=== PATIENT | female | born 1990 | race Caucasian/White ===

== ENCOUNTER → 2016-09-13 | Outpatient (CLI) | payer BC ==
[~2016-09-13] MED LIST: BUSP5TAB59 PO; CHOL1000 PO; IBUP-103 PO; LEVOIUD INT UTER; SERT-234 PO
== END | disposition home or self-care (01) ==
LOC: C.LABSPEC 09:44
PROVIDERS: ATTEND Nurse Practitioner
DX: J02.9 Acute pharyngitis, unspecified (principal)

== ENCOUNTER 2016-12-09 01:16 | Emergency (ER) | payer BC ==
[~2016-12-09] VITALS: Ht 170.2 cm; Wt 66.9 kg
[~2016-12-09 01:16] MED LIST changes: -BUSP5TAB59 PO; -CHOL1000 PO; -SERT-234 PO
[2016-12-09 01:20] VITALS: TEMP 36.6; Ht 170.2 cm; Wt 66.9 kg
[2016-12-09] MEDS ORDERED: FAMOTIDINE 20MG/102 ML D5W IV STA (01:28)
[2016-12-09] MEDS ORDERED: SODIUM CHLORIDE 0.9% 1000ML 2,000 ML IV STA (01:28)
[2016-12-09] MEDS ORDERED: ONDANSETRON INJ 2 MG/ML 2 ML VIAL IV STA (01:28)
[2016-12-09] MEDS ORDERED: LIDOCAINE HCL 2% VISC SOLN 20 ML UDC PO STA (01:28)
[2016-12-09] MEDS ORDERED: ALUMINUM/MAGNESIUM SUSP 30 ML UDC PO STA (01:28)
[2016-12-09 01:47] LABS: BASO % 0.1 %; BASO ABS # 0.01 K/uL (0-0.2); COMPLETE YES; EOS % 0.3 %; HEMATOCRIT 42.1 % (37-47); IG% 0.2 %; LYMPH % 6.1 %; LYMPH ABS # 0.57 K/uL (1.2-3.4); MEAN CELL VOLUME 88.4 fL (80-100); MEAN CORPUSCULAR HEMOGLOBIN 30.5 pg (25-34); MEAN CORPUSCULAR HGB CONC 34.4 g/dl (32-36); MEAN PLATELET VOLUME 10.4 fL (7.4-10.4); MONO % 3.6 %; NEUT % 89.7 %; PLATELET COUNT 245 K/uL (130-400); RED BLOOD COUNT 4.76 M/uL (4.2-5.4); WHITE BLOOD COUNT 9.35 K/uL (4.8-10.8)
[2016-12-09] MEDS ORDERED: BUSP5TAB59 PO (01:53)
[2016-12-09] MEDS ORDERED: SERT-234 PO (01:53)
[2016-12-09 02:07] LABS: PREG INTERNAL NEGATIVE QC NEG CLEAR BACKGROUND; PREG INTERNAL POSITIVE QC POS CONTROL LINE
[2016-12-09 02:10] LABS: BUN/CREATININE RATIO 26.1 (10-20); CALCIUM 8.3 mg/dl (8.5-10.1); CREATININE 0.83 mg/dl (0.60-1.20); POTASSIUM 3.9 mmol/L (3.5-5.1)
--- NOTE | 2016-12-09 03:46 | EMERGENCY ROOM VISIT NOTE ---
History First contact with patient: 01:23 Chief Complaint: ABDOMINAL PAIN Stated Complaint: VOMITING,DIARRHEA,ABDOMINAL PAIN,BLACKED OUT History of Present Illness The patient is a 26 year old female who presents to the Emergency Room with complaints of nausea, vomiting, diarrhea and lightheadedness for the past day. Patient had multiple episodes of vomiting and diarrhea. No recent antibiotics. No well water. She works at [employer]. She has been around sick people. No blood or black in the vomit or stool. She denies chest pain, dyspnea, fever , chills, cough, congestion, back pain. She cannot keep fluids down. Patient did not pass out. She nearly passed out. Review of Systems See HPI for pertinent positives & negatives. A total of 10 systems reviewed and were otherwise negative. Past Medical/Surgical History Medical Problems: (1) Abdominal pain (2) Elevated lipase (3) Epigastric abdominal pain (4) Epigastric abdominal pain (5) Epigastric abdominal pain (6) Irritable bowel syndrome (7) Kidney stones (8) Pancreatitis (9) Vaginal delivery Surgical Problems: (1) History of endoscopy (2) Hx of cholecystectomy Family History Cancer Diabetes mellitus Gallbladder disease Heart disease Hypertension Lung disease Social History Smoking Status: Never Smoker Alcohol Use: none Marital Status: Housing Status: lives with family Occupation Status: employed Current/Historical Medications Scheduled Buspirone Hcl (Buspirone Hcl), 5 MG PO TID Levonorgestrel (Iud) (Mirena), 1 INT UTER CONTINOUS Sertraline (Zoloft), 100 MG PO DAILY Allergies Coded Allergies: No Known Allergies (Verified , 12/09/16) Physical Exam Vital Signs Date Time Temp Pulse Resp B/P Pulse Ox O2 Delivery O2 Flow Rate FiO2 12/09/16 03:35 76 20 109/61 98 Room Air 12/09/16 01:20 36.6 89 16 104/68 96 Room Air Physical Exam VITALS: Vitals are noted on the nurse's note and reviewed by myself. Vital signs stable. GENERAL: Pleasant female, in no acute distress, nondiaphoretic, well-developed well-nourished. SKIN: The skin was without rashes, erythema, edema, or bruising. There is no tenting of the skin. Capillary reflex less than 2 seconds. HEAD: Normocephalic atraumatic. EARS: External auditory canals clear, tympanic membranes pearly franco without erythema or effusion bilaterally. EYES: Pupils equal round and reactive to light and accommodation. Conjunctivae without injection, sclerae without icterus. Extraocular movements intact. NOSE: Patent, turbinates without inflammation or discharge. MOUTH: Mucous membranes mildly dry. Pharynx without erythema or exudate. Uvula midline. Airway patent. Tongue does not deviate. NECK: Supple without nuchal rigidity. No lymphadenopathy. No thyromegaly. Cervical spine is nontender. No JVD. HEART: Regular rate and rhythm without murmurs gallops or rubs. LUNGS: Clear to auscultation bilaterally without wheezes, rales or rhonchi. No dullness to percussion. No retractions or accessory muscle use. ABDOMEN: Positive bowel sounds x 4. Normal tympanic percussion. Soft, nontender, without masses or organomegaly. Nicole sign negative. No guarding or rebound tenderness. MUSCULOSKELETAL: No muscle atrophy, erythema, or edema noted. NEURO: Patient was alert and oriented to person place and time. Normal sensation to light and sharp touch. No focal neurological deficits. Medical Decision & Procedures Laboratory Results 12/09/16 01:30 Red Blood Count 4.76, Mean Corpuscular Volume 88.4, Mean Corpuscular Hemoglobin 30.5, Mean Corpuscular Hemoglobin Concent 34.4, Mean Platelet Volume 10.4, Neutrophils (%) (Auto) 89.7, Lymphocytes (%) (Auto) 6.1, Monocytes (%) (Auto) 3.6, Eosinophils (%) (Auto) 0.3, Basophils (%) (Auto) 0.1, Neutrophils # (Auto) 8.38, Lymphocytes # (Auto) 0.57, Monocytes # (Auto) 0.34, Eosinophils # (Auto) 0.03, Basophils # (Auto) 0.01 12/09/16 01:30 Test 12/09/16 01:30 White Blood Count 9.35 K/uL (4.8-10.8) Red Blood Count 4.76 M/uL (4.2-5.4) Hemoglobin 14.5 g/dL (12.0-16.0) Hematocrit 42.1 % (37-47) Mean Corpuscular Volume 88.4 fL (80-100) Mean Corpuscular Hemoglobin 30.5 pg (25-34) Mean Corpuscular Hemoglobin Concent 34.4 g/dl (32-36) Platelet Count 245 K/uL (130-400) Mean Platelet Volume 10.4 fL (7.4-10.4) Neutrophils (%) (Auto) 89.7 % Lymphocytes (%) (Auto) 6.1 % Monocytes (%) (Auto) 3.6 % Eosinophils (%) (Auto) 0.3 % Basophils (%) (Auto) 0.1 % Neutrophils # (Auto) 8.38 K/uL (1.4-6.5) Lymphocytes # (Auto) 0.57 K/uL (1.2-3.4) Monocytes # (Auto) 0.34 K/uL (0.11-0.59) Eosinophils # (Auto) 0.03 K/uL (0-0.5) Basophils # (Auto) 0.01 K/uL (0-0.2) RDW Standard Deviation 40.3 fL (36.4-46.3) RDW Coefficient of Variation 12.5 % (11.5-14.5) Immature Granulocyte % (Auto) 0.2 % Immature Granulocyte # (Auto) 0.02 K/uL (0.00-0.02) Anion Gap 9.0 mmol/L (3-11) Est Creatinine Clear Calc Drug Dose 99.0 ml/min Estimated GFR () 112.0 Estimated GFR (Non- 96.6 BUN/Creatinine Ratio 26.1 (10-20) Calcium Level 8.3 mg/dl (8.5-10.1) Human Chorionic Gonadotropin, Qual NEG (NEG) Medications Administered Medications (Trade) Dose Ordered Sig/Chano Route Start Time Stop Time Status Last Admin Dose Admin Ondansetron HCl 4 mg 4 mg NOW STAT IV 12/09/16 01:28 12/09/16 01:29 DC 12/09/16 01:38 4 MG Sodium Chloride (Nss 1000ml) 2,000 ml @ 999 mls/hr Q2H1M STAT IV 12/09/16 01:28 12/09/16 03:28 DC 12/09/16 01:38 999 MLS/HR Famotidine (Pepcid 20mg/100 ml) 20 mg ONE STAT IV 12/09/16 01:28 12/09/16 01:30 DC 12/09/16 01:38 20 MG Lidocaine HCl (Viscous Lidocaine 2% Soln) 10 ml NOW STAT PO 12/09/16 01:28 12/09/16 01:30 DC 12/09/16 02:08 10 ML Al Hydroxide/Mg Hydroxide (Maalox Susp) 30 ml NOW STAT PO 12/09/16 01:28 12/09/16 01:30 DC 12/09/16 02:08 30 ML ED Course Prior records/ancillary studies reviewed. Triage Nursing notes reviewed. The patient's history was concerning for nausea, vomiting, diarrhea, and abdominal pain. Differential diagnosis: Etiologies such as gastroenteritis, food borne illness, infections, appendicitis , diverticulitis, inflammatory bowel disease, obstruction, GI bleed, biliary pathology, as well as others were entertained. Physical examination findings: As above. Abdominal examination revealed no tenderness. Vital signs reviewed and revealed stable. ER treatment provided: IV hydration 2 L NSS. Zofran, Pepcid, GI cocktail On reassessment the patient felt better. Patient was tolerating p.o. intake. Diagnostics interpretation by me: The labs revealed no worrisome leukocytosis or electrolyte abnormality negative hCG This appears to be consistent with vomiting and diarrhea most likely viral in etiology. Patient did not have an acute abdomen on exam. She is tolerating fluids. She felt better. She requested to leave. She is advised to do clear liquid diet today and then progress as tolerated to bland diet tomorrow. She is advised follow-up family care in a few days or here in the ER sooner for abdominal pain, fevers, vomiting, worsening signs or symptoms or as needed. By the evaluation outlined above emergent etiologies such as appendicitis, diverticulitis, obstruction, cardiac sources, mesenteric ischemia, aortic pathology, inflammatory bowel disease, renal colic, PUD, biliary pathology, UTI , as well as others were deemed relatively unlikely. The pt informed about the findings as listed above. All questions were answered and pleased with the treatment. Return instructions were outlined and the patient was discharged in stable condition. Outpatient prescription management: zofran Referral: The patient was referred to their primary care physician for follow-up in 2 to 3 days for a recheck of the current condition. Medical Decision As above Impression Primary Impression: Nausea vomiting and diarrhea Additional Impression: Dehydration Departure Information Dispostion Home / Self-Care Condition GOOD Referrals No Doctor, Assigned (PCP) Patient Instructions [facility] Additional Instructions Zofran(odansetron) tablets 4mg: Take one and allow it to dissolve in your mouth every four to six hours as needed for nausea or vomiting. Acetaminophen(Tylenol) may be used for fever or pain. Use 1000mg every six hours as needed. Avoid using more than 3000mg in a 24 hour period. Rest and drink plenty of fluids as tolerated. Slow sips of water or sports drinks are recommended instead of large amounts all at once. Continue current medications. Once your stomach is settled start with a clear liquid diet (jello, soup broth, etc.) and then advance as tolerated. You should avoid full, heavy meals for about 24 hrs from the time your symptoms resolved. Return to the ER for persistent vomiting, fevers, abdominal pain, chest pains, difficulty breathing, black or bloody stools, worsening of your condition, or as needed. Follow up with your primary physician in 2-3 days for a recheck of your current condition. Problem Qualifiers
[2016-12-09] MEDS ORDERED: ONDANSETRON HOME PACK 4MG OD TAB PO ONE (04:00)
[2016-12-09 04:06] VITALS: BP 112/61; PULSE 65; O2SAT 95
== END 2016-12-09 04:09 | disposition home or self-care (01) ==
LOC: C.EDB 01:18 → C.EDA 04:09
DX: R11.2 Nausea with vomiting, unspecified (principal); R19.7 Diarrhea, unspecified; E86.0 Dehydration; R10.9 Unspecified abdominal pain; R42 Dizziness and giddiness; Z79.899 Other long term (current) drug therapy; Z87.19 Personal history of other diseases of the digestive system; Z87.442 Personal history of urinary calculi; Z97.5 Presence of (intrauterine) contraceptive device; Z82.49 Family history of ischemic heart disease and other diseases of the circulatory system; Z83.3 Family history of diabetes mellitus; Z83.6 Family history of other diseases of the respiratory system; Z83.79 Family history of other diseases of the digestive system

== ENCOUNTER 2017-03-08 16:36 | Emergency (ER) | payer BC ==
[~2017-03-08] VITALS: Ht 170.2 cm; Wt 64.0 kg
[~2017-03-08 16:36] MED LIST changes: +BUSP5TAB59 PO; -IBUP-103 PO; +SERT-234 PO
[2017-03-08 16:39] VITALS: TEMP 36.7; Ht 170.2 cm; Wt 64.0 kg
[2017-03-08] MEDS ORDERED: HYDROmorphone INJ 0.5 MG/0.5 ML SYR IV STA ×2 (16:51→18:32)
[2017-03-08] MEDS ORDERED: ONDANSETRON INJ 2 MG/ML 2 ML VIAL IV STA (16:51)
[2017-03-08] MEDS ORDERED: SODIUM CHLORIDE 0.9% 1000ML 1,000 ML IV STA (16:51)
[2017-03-08] MEDS ORDERED: CHOL1000 PO (16:53)
[2017-03-08 17:20] VITALS: O2SAT 99
[2017-03-08 17:28] LABS: ISTAT HEMOGLOBIN 13.9 g/dl (12.0-16.0); ISTAT IONIZED CALCIUM 1.16 mmol/l (1.12-1.32)
[2017-03-08 17:30] LABS: URINE APPEARANCE CLEAR (CLEAR); URINE BILIRUBIN NEG (NEG); URINE COLOR YELLOW; URINE NITRITE NEG (NEG); URINE PH 5.5 (4.5-7.5); URINE SPECIFIC GRAVITY 1.028 (1.000-1.030); UROBILINOGEN NEG (NEG)
[2017-03-08] MEDS ORDERED: OPTIRAY 320 IV PRN (17:30)
[2017-03-08 17:32] LABS: MANUAL MICROSCOPIC REQUIRED? NO; REVIEW REQ? NO
--- NOTE | 2017-03-08 18:08 | DIAGNOSTIC IMAGING REPORT ---
CT OF THE CHEST WITH IV CONTRAST CLINICAL HISTORY: Trauma. COMPARISON STUDY: Chest radiograph March 02, 2016. TECHNIQUE: Following IV administration of 116 mL of Optiray-320, helical axial images of the chest were obtained. Sagittal and coronal reconstructions were viewed as well as maximal intensity projections on an independent 3-D workstation. A dose lowering technique was utilized adhering to the principles of ALARA. CT DOSE: 550.85 mGy.cm FINDINGS: There is no evidence of traumatic injury to the thoracic aorta. The size of the heart is normal. There is no pericardial effusion. There are multiple calcified left hilar lymph nodes. This suggests a prior granulomatous process. No pneumothorax or pleural effusion is present. There is no acute rib or thoracic spine fracture. There is no pulmonary contusion. Minimal tree-in-bud opacity within the left lower lobe shown best on axial image 173 of 311 suggest a mild bronchiolitis. A partially calcified left lower lobe nodule shown image 207 of 311 is unchanged. This is benign. IMPRESSION: 1. No acute traumatic findings within the chest. 2. Minimal tree-in-bud opacity within the left lower lobe which suggests a mild bronchiolitis. 3. Evidence for a prior granulomatous process, as described above. Electronically signed by: Ascencion Wiggins M.D. 03/08/2017 6:06 PM Dictated Date/Time: 03/08/2017 5:53 PM
--- NOTE | 2017-03-08 18:11 | DIAGNOSTIC IMAGING REPORT ---
LEFT KNEE 3 VIEWS CLINICAL HISTORY: Left knee pain following injury. COMPARISON: Left knee radiographs December 02, 2008. FINDINGS: Alignment of the left knee is anatomic. No acute fracture or joint effusion is identified. A few tiny ossific/calcific densities which project posterior to the lateral aspect of the patella on sunrise projection are likely chronic. IMPRESSION: 1. No acute fracture or joint effusion of the left knee. 2. Several small calcific/ossific densities project posterior to the lateral aspect of the patella only on sunrise projection are likely chronic. Electronically signed by: Ascencion Wiggins M.D. 03/08/2017 6:09 PM Dictated Date/Time: 03/08/2017 6:08 PM
--- NOTE | 2017-03-08 18:18 | DIAGNOSTIC IMAGING REPORT ---
CT OF THE ABDOMEN AND PELVIS WITH CONTRAST CLINICAL HISTORY: Trauma. COMPARISON STUDY: CT of the abdomen April 06, 2015 and MRI of the abdomen May 19, 2015. TECHNIQUE: Following IV administration of 116 mL of Optiray-320, axial images of the abdomen and pelvis were obtained from the lung bases to the proximal femurs. Images were reviewed in the axial, sagittal, and coronal planes. IV contrast was administered without complication. A dose lowering technique was utilized adhering to the principles of ALARA. FINDINGS: There is no evidence of traumatic injury to the liver, spleen, adrenal glands, kidneys or pancreas. There is no biliary ductal dilatation status post cholecystectomy. The caliber and wall thickness of small and large bowel are normal. An intrauterine device is appropriate position. There is no free fluid. No acute pelvic or lumbar spine fracture is identified. The appendix is normal. IMPRESSION: No acute traumatic findings within the abdomen or pelvis. Electronically signed by: Ascencion Wiggins M.D. 03/08/2017 6:17 PM Dictated Date/Time: 03/08/2017 6:10 PM
--- NOTE | 2017-03-08 19:16 | EMERGENCY ROOM VISIT NOTE ---
History First contact with patient: 16:42 Chief Complaint: FALL Stated Complaint: KNEE PAIN, PAIN BELOW RIBS History of Present Illness The patient is a 26 year old female who presents to the Emergency Room with complaints of injuries after being blocked off of a coarse, and the horse landing on top of her this morning. The patient reports that she was training a mare when the horse bucked up and fell backwards onto the patient. She complains primarily of left knee pain, but also has upper abdominal/lower chest and rib pain. The patient denies any shortness of breath or chest pain at the time of the injury. She denies any neck pain or back pain. She does report mild left facial pain. She did not notice any taste of blood, epistaxis or jaw pain. She denies any lower abdominal pain, pelvic pain or right lower extremity pain. She denies paresthesias or numbness of the upper or lower extremities. She currently rates her discomfort a 4 out of 10. Tetanus immunization is up-to-date. The patient denies , and reports that she has a Mirena IUD in place. Review of Systems HEENT: Denies dizziness, visual problems, hearing loss, tinnitus. Denies difficulty swallowing or oral lesions. PULMONARY: Denies cough, shortness of breath, sputum production or hemoptysis. CARDIOVASCULAR: Denies chest pain, palpitations, dyspnea on exertion, orthopnea or peripheral edema. GASTROINTESTINAL: Denies diarrhea, constipation, nausea or vomiting, otherwise complains of an otherwise upper abdominal pain.. GENITOURINARY: Denies dysuria, frequency, urgency or nocturia. NEUROLOGIC: Denies history of epilepsy, CVA, TIA or chronic headaches. MUSCULOSKELETAL: Denies history of joint tenderness/swelling. SKIN: Denies rashes or lesions. PSYCHIATRIC: Denies history of depression or mental illness. ENDOCRINE: Denies history of diabetes or thyroid disorders. Past Medical/Surgical History Medical Problems: (1) Abdominal pain (2) Elevated lipase (3) Epigastric abdominal pain (4) Epigastric abdominal pain (5) Epigastric abdominal pain (6) Irritable bowel syndrome (7) Kidney stones (8) Pancreatitis (9) Vaginal delivery Surgical Problems: (1) History of endoscopy (2) Hx of cholecystectomy Family History Cancer Diabetes mellitus Gallbladder disease Heart disease Hypertension Lung disease Social History Smoking Status: Never Smoker Alcohol Use: none Marital Status: Housing Status: lives with family Occupation Status: employed Current/Historical Medications Scheduled Buspirone Hcl (Buspirone Hcl), 5 MG PO TID Cholecalciferol (Vitamin D3), 1,000 UNITS PO DAILY Levonorgestrel (Iud) (Mirena), 1 INT UTER CONTINOUS Sertraline (Zoloft), 150 MG PO DAILY Physical Exam Vital Signs Date Time Temp Pulse Resp B/P (MAP) Pulse Ox O2 Delivery O2 Flow Rate FiO2 03/08/17 18:54 60 18 116/64 97 03/08/17 17:22 70 03/08/17 17:20 99 Room Air 03/08/17 16:39 36.7 81 16 118/69 97 Physical Exam CONSTITUTIONAL: Healthy and well nourished. Alert and oriented X 3 with positive affect. Patient does not appear in any acute distress. GCS 15. HEENT: Normocephalic, atraumatic. Pupils equal, round and reactive. No facial edema, abrasions or ecchymosis. She has no focal tenderness of the facial bones. No epistaxis, hemotympanum, raccoon's eyes or Duncan sign. NECK: Full active range of motion without discomfort. RESPIRATORY: Clear to auscultation bilaterally with no wheezing, crackles, rhonchi or stridor. Deep breathing does not cause any discomfort. CARDIOVASCULAR: Regular rate and rhythm with no murmurs, rubs or gallops. GASTROINTESTINAL: Bowel sounds present in all quadrants. Patient has mild upper abdominal tenderness to palpation under bilateral lower rib margins. No rigidity, guarding or rebound. No suprapubic tenderness to palpation. MUSCULOSKELETAL: Examination does not show any obvious tenderness to palpation of the lower rib margin. Examination of the left knee shows mild edema over the medial aspect of the knee. No obvious joint effusion noted. She has peripatellar and patellar tendon tenderness to palpation. She is able to straight leg raise. No popliteal masses. Negative logroll of the hip. No tenderness to palpation about the ankle. No tenderness to palpation through the central thoracolumbar spine or posterior ribs. Otherwise the patient has no other acute musculoskeletal findings on exam. INTEGUMENTARY: No rash or other significant dermatologic conditions noted. NEUROLOGIC: Cranial nerves II-XII grossly intact. No focal neurologic deficits noted. Upper and lower extremity's are sensory intact. Medical Decision & Procedures ER Provider Diagnostic Interpretation: CT with IV contrast of the chest, abdomen and pelvis does not show any obvious acute intrathoracic or intra-abdominal/pelvic findings. Radiologist reports are as follows: CT OF THE ABDOMEN AND PELVIS WITH CONTRAST CLINICAL HISTORY: Trauma. COMPARISON STUDY: CT of the abdomen April 06, 2015 and MRI of the abdomen May 19, 2015. TECHNIQUE: Following IV administration of 116 mL of Optiray-320, axial images of the abdomen and pelvis were obtained from the lung bases to the proximal femurs. Images were reviewed in the axial, sagittal, and coronal planes. IV contrast was administered without complication. A dose lowering technique was utilized adhering to the principles of ALARA. FINDINGS: There is no evidence of traumatic injury to the liver, spleen, adrenal glands, kidneys or pancreas. There is no biliary ductal dilatation status post cholecystectomy. The caliber and wall thickness of small and large bowel are normal. An intrauterine device is appropriate position. There is no free fluid. No acute pelvic or lumbar spine fracture is identified. The appendix is normal. IMPRESSION: No acute traumatic findings within the abdomen or pelvis. CT OF THE CHEST WITH IV CONTRAST CLINICAL HISTORY: Trauma. COMPARISON STUDY: Chest radiograph March 02, 2016. TECHNIQUE: Following IV administration of 116 mL of Optiray-320, helical axial images of the chest were obtained. Sagittal and coronal reconstructions were viewed as well as maximal intensity projections on an independent 3-D workstation. A dose lowering technique was utilized adhering to the principles of ALARA. CT DOSE: 550.85 mGy.cm FINDINGS: There is no evidence of traumatic injury to the thoracic aorta. The size of the heart is normal. There is no pericardial effusion. There are multiple calcified left hilar lymph nodes. This suggests a prior granulomatous process. No pneumothorax or pleural effusion is present. There is no acute rib or thoracic spine fracture. There is no pulmonary contusion. Minimal tree-in-bud opacity within the left lower lobe shown best on axial image 173 of 311 suggest a mild bronchiolitis. A partially calcified left lower lobe nodule shown image 207 of 311 is unchanged. This is benign. IMPRESSION: 1. No acute traumatic findings within the chest. 2. Minimal tree-in-bud opacity within the left lower lobe which suggests a mild bronchiolitis. 3. Evidence for a prior granulomatous process, as described above. LEFT KNEE 3 VIEWS CLINICAL HISTORY: Left knee pain following injury. COMPARISON: Left knee radiographs December 02, 2008. FINDINGS: Alignment of the left knee is anatomic. No acute fracture or joint effusion is identified. A few tiny ossific/calcific densities which project posterior to the lateral aspect of the patella on sunrise projection are likely chronic. IMPRESSION: 1. No acute fracture or joint effusion of the left knee. 2. Several small calcific/ossific densities project posterior to the lateral aspect of the patella only on sunrise projection are likely chronic. Laboratory Results Test 03/08/17 17:15 03/08/17 17:16 Urine Color YELLOW Urine Appearance CLEAR (CLEAR) Urine pH 5.5 (4.5-7.5) Urine Specific [place] 1.028 (1.000-1.030) Urine Protein NEG (NEG) Urine Glucose (UA) NEG (NEG) Urine Ketones NEG (NEG) Urine Occult Blood NEG (NEG) Urine Nitrite NEG (NEG) Urine Bilirubin NEG (NEG) Urine Urobilinogen NEG (NEG) Urine Leukocyte Esterase NEG (NEG) Bedside Hemoglobin 13.9 g/dl (12.0-16.0) Bedside Hematocrit 41 % (37-47) Bedside Sodium 142 mEq/L (135-144) Bedside Potassium 3.6 mEq/L (3.3-5.0) Bedside Chloride 102 mEq/L (101-112) Bedside Total CO2 26 mEq/l (24-31) Anion Gap 19.0 mmol/L (16-25) Bedside Blood Urea Nitrogen 17 mg/dl (7-18) Bedside Creatinine 1.0 mg/dl (0.6-1.3) Bedside Glucose (other) 73 mg/dl (70-99) Bedside Ionized Calcium (Laura) 1.16 mmol/l (1.12-1.32) I-STAT labs were reviewed, and were normal. Medications Administered Medications (Trade) Dose Ordered Sig/Chano Route Start Time Stop Time Status Last Admin Dose Admin Sodium Chloride 1,000 ml @ 999 mls/hr Q1H1M STAT IV 03/08/17 16:51 03/08/17 17:51 DC 03/08/17 17:03 999 MLS/HR Ondansetron HCl (Zofran Inj) 4 mg NOW STAT IV 03/08/17 16:51 03/08/17 16:55 DC 03/08/17 17:04 4 MG Hydromorphone HCl (Dilaudid Inj) 0.5 mg NOW STAT IV 03/08/17 16:51 03/08/17 16:55 DC 03/08/17 17:04 0.5 MG Hydromorphone HCl (Dilaudid Inj) 0.5 mg NOW STAT IV 03/08/17 18:32 03/08/17 18:33 DC 03/08/17 18:55 0.5 MG ED Course Patient history and physical exam were performed. Nurse's notes were reviewed. Vital signs were reviewed and normal. Because of right upper abdominal tenderness to palpation, and concern for solid organ injury, I did suggest performing a CT scan of the chest, abdomen and pelvis. The patient was in agreement. IV access was established, and i-STAT labs were drawn and were normal. The patient reports that she cannot tolerate morphine, but is requesting something for pain. She has been administered Dilaudid in the past. The patient was administered Dilaudid 0.5 mg and Zofran 4 mg IVP. She was also hydrated with a liter normal saline. CT with IV contrast of the chest, abdomen and pelvis was normal. X-rays of the left knee also does not show any acute findings. On reassessment, the patient reports that she still has notable left knee pain. I suggested another dose of IV Dilaudid, and the patient was in agreement. She was administered an additional Dilaudid 0.5 mg IVP. Knee immobilizer and crutches were dispensed. The patient was encouraged to intermittently apply ice to areas of discomfort. Ibuprofen and Tylenol in alternating fashion as needed for additional pain relief. She refused any prescription analgesics. She was instructed to follow-up with her PCP for recheck in the next 2-3 days, and [facility] for further reassessment of the knee. The patient was happy with plan of care, voiced understanding of all discharge instructions , and rated her pain a 4 out of 10 at the time of discharge. Medical Decision Workup today is not suggestive of any acute intrathoracic or intra-abdominal/ pelvic traumatic injuries. The patient remained hemodynamically stable while in the emergency department, and did not have any worsening condition. I feel that the patient is safe for outpatient management. Blood Pressure Screening Patient's blood pressure: Normal blood pressure Impression Primary Impression: Left knee injury Additional Impressions: Abdominal wall contusion Facial contusion Fall from horse Departure Information Referrals Patricia Fontenot C.R.N.P (PCP) Patient Instructions [facility] Problem Qualifiers Primary Impression: Left knee injury Encounter type: initial encounter Qualified Codes: S89.92XA - Unspecified injury of left lower leg, initial encounter Additional Impressions: Abdominal wall contusion Encounter type: initial encounter Qualified Codes: S30.1XXA - Contusion of abdominal wall, initial encounter Facial contusion Encounter type: initial encounter Qualified Codes: S00.83XA - Contusion of other part of head, initial encounter Fall from horse Encounter type: initial encounter Qualified Codes: V80.010A - Animal-rider injured by fall from or being thrown from horse in noncollision accident, initial encounter
[2017-03-08 19:47] VITALS: BP 121/76; PULSE 71; O2SAT 100
== END 2017-03-08 19:49 | disposition home or self-care (01) ==
LOC: C.EDB 16:37 → C.EDA 19:49
DX: S89.92XA Unspecified injury of left lower leg, initial encounter (principal); S30.1XXA Contusion of abdominal wall, initial encounter; S00.83XA Contusion of other part of head, initial encounter; V80.010A Animal-rider injured by fall from or being thrown from horse in noncollision accident, initial encounter; K58.9 Irritable bowel syndrome, unspecified; Z87.442 Personal history of urinary calculi; Z83.3 Family history of diabetes mellitus; Z82.49 Family history of ischemic heart disease and other diseases of the circulatory system

== ENCOUNTER → 2017-03-27 | Outpatient (CLI) | payer BC ==
[~2017-03-27] MED LIST changes: +CHOL1000 PO
== END | disposition home or self-care (01) ==
LOC: C.LABSPEC 17:37
PROVIDERS: ATTEND Obstetrics & Gynecology
DX: N76.2 Acute vulvitis (principal)

== ENCOUNTER → 2017-07-11 | Outpatient (CLI) | payer BC ==
[2017-07-11 17:43] LABS: BASO % 0.3 %; BASO ABS # 0.02 K/uL (0-0.2); COMPLETE YES; EOS % 1.9 %; HEMATOCRIT 40.9 % (37-47); IG% 0.2 %; LYMPH ABS # 1.92 K/uL (1.2-3.4); MEAN CELL VOLUME 90.5 fL (80-100); MEAN CORPUSCULAR HEMOGLOBIN 30.5 pg (25-34); MEAN CORPUSCULAR HGB CONC 33.7 g/dl (32-36); MEAN PLATELET VOLUME 10.7 fL (7.4-10.4); MONO % 9.7 %; NEUT % 56.9 %; PLATELET COUNT 240 K/uL (130-400); RED BLOOD COUNT 4.52 M/uL (4.2-5.4)
[2017-07-11 18:09] LABS: BLOOD UREA NITROGEN 16 mg/dl (7-18); BUN/CREATININE RATIO 23.4 (10-20); CALCIUM 8.3 mg/dl (8.5-10.1); CARBON DIOXIDE 27 mmol/L (21-32); CHLORIDE 105 mmol/L (98-107); CREATININE 0.67 mg/dl (0.60-1.20); GLUCOSE 87 mg/dl (70-99); POTASSIUM 4.2 mmol/L (3.5-5.1); SODIUM 137 mmol/L (136-145)
== END | disposition home or self-care (01) ==
LOC: C.LABPVFM 15:40
PROVIDERS: ATTEND Family Medicine Adult Medicine
DX: R53.83 Other fatigue (principal); R39.9 Unspecified symptoms and signs involving the genitourinary system

== ENCOUNTER → 2017-11-17 | Outpatient (CLI) | payer OTHER ==
[~2017-11-17] MED LIST changes: +LEVO1IUD2 INT UTER; -LEVOIUD INT UTER
== END | disposition home or self-care (01) ==
LOC: C.LABPVFM 14:14
PROVIDERS: ATTEND Nurse Practitioner
DX: N91.2 Amenorrhea, unspecified (principal)

== ENCOUNTER 2018-02-21 08:03 | Emergency (ER) | payer OTHER ==
[~2018-02-21] VITALS: Ht 171.5 cm; Wt 81.6 kg
[2018-02-21 08:07] VITALS: TEMP 37.1; O2SAT 98; Ht 171.5 cm; Wt 81.6 kg
[2018-02-21 08:54] LABS: HEMOGLOBIN 13.5 g/dL (12.0-16.0); MEAN CORPUSCULAR HEMOGLOBIN 30.8 pg (25-34); MEAN CORPUSCULAR HGB CONC 34.6 g/dl (32-36); MEAN PLATELET VOLUME 10.4 fL (7.4-10.4); PLATELET COUNT 222 K/uL (130-400); RED CELL DISTRIBUTION WIDTH CV 13.1 % (11.5-14.5); RED CELL DISTRIBUTION WIDTH SD 42.3 fL (36.4-46.3); WHITE BLOOD COUNT 12.42 K/uL (4.8-10.8)
[2018-02-21 09:10] LABS: BLOOD UREA NITROGEN 9 mg/dl (7-18); CALCIUM 8.3 mg/dl (8.5-10.1); CARBON DIOXIDE 23 mmol/L (21-32); CREATININE 0.52 mg/dl (0.60-1.20); GLUCOSE 86 mg/dl (70-99); POTASSIUM 3.7 mmol/L (3.5-5.1); SODIUM 137 mmol/L (136-145)
--- NOTE | 2018-02-21 10:02 | DIAGNOSTIC IMAGING REPORT ---
EXAMINATION: RENAL ULTRASOUND CLINICAL HISTORY: Dysuria, incontinence. COMPARISON STUDY: FINDINGS: The right kidney measures 11.5 cm. The left kidney measures 10.8 cm. There is no evidence of hydronephrosis. There are no renal masses. The bladder was not well-distended. Neither ureteral jet was visualized. IMPRESSION : 1. The kidneys appear normal bilaterally. There is no hydronephrosis. Electronically signed by: Mauricio Renner M.D. 02/21/2018 10:00 AM Dictated Date/Time: 02/21/2018 10:00 AM
--- NOTE | 2018-02-21 10:04 | DIAGNOSTIC IMAGING REPORT ---
ULTRASONOGRAPHY (ENDOVAGINAL SCANNING) CLINICAL HISTORY: , urinary tract infection. COMPARISON STUDY: No previous studies for comparison. FINDINGS: A single alive intrauterine gestation was visualized. The crown-rump rump length measured 4.8 cm corresponding to an estimated postmenstrual age of 11 weeks and 4 days. The placenta was anterior. The maternal ovaries were unremarkable in appearance. The heart rate is 163. IMPRESSION: Single live intrauterine gestation. The estimated postmenstrual age is 11 weeks and 4 days. Electronically signed by: Mauricio Renner M.D. 02/21/2018 10:02 AM Dictated Date/Time: 02/21/2018 10:01 AM
[2018-02-21 10:06] VITALS: PULSE 88
[2018-02-21] MEDS ORDERED: AMOX875T PO (10:21)
[2018-02-21] MEDS ORDERED: ONDA4TAB10 SL (10:21)
--- NOTE | 2018-02-21 10:23 | EMERGENCY ROOM VISIT NOTE ---
History First contact with patient: 08:10 Chief Complaint: URINARY SYMPTOMS Stated Complaint: 12 WK PREGANANT-CAN'T CONTROL BLADDER, WOKE IN [facility] Nursing Triage Summary: I am 12 weeks preg I woke up peeing myself. I am unable to control my bladder. having a lot of bladder pain. recently finished antibiotics for bladder infection History of Present Illness Patient is a 12 week 27-year-old female who presents emergency department for evaluation of bladder pain and UTI symptoms. Her symptoms started yesterday with bladder pain. She began to experience some dysuria, frequency, urgency and reports that she was incontinent of urine this morning when she woke up and has had persistent urgency and hesitancy this morning. She called her [employer] but did not hear back from them. She was treated at the beginning of the month for a urinary tract infection with an unknown antibiotic , she finished this about 2 weeks ago and was asymptomatic until yesterday. She did not take any medications, nor perform any interventions for her symptoms overnight. She reports normal vaginal discharge, denies any vaginal bleeding and does report that she has been feeling the baby move. She has not had intercourse recently. She denies feeling anything that is contraction like , but does have some low back aching. She has had some chills but did not check her temperature. She does report typical headache and nausea related to her first trimester . She does have a history of kidney stones. Review of Systems Review of systems as per HPI. All other systems reviewed were negative. 10 systems reviewed. Past Medical/Surgical History Medical Problems: (1) Abdominal pain (2) Abdominal wall contusion (3) Dehydration (4) Elevated lipase (5) Epigastric abdominal pain (6) Epigastric abdominal pain (7) Epigastric abdominal pain (8) Facial contusion (9) Fall from horse (10) Irritable bowel syndrome (11) Kidney stones (12) Left knee injury (13) Left sided chest pain (14) Nausea vomiting and diarrhea (15) Pancreatitis (16) Vaginal delivery Surgical Problems: (1) History of endoscopy (2) Hx of cholecystectomy Electronic medical records are reviewed and summarized as above/below. See Problem List. Family History Cancer Diabetes mellitus Gallbladder disease Heart disease Hypertension Lung disease Social History Smoking Status: Never Smoker Alcohol Use: none Marital Status: Housing Status: lives with family Occupation Status: employed Current/Historical Medications Scheduled Amoxicillin & Pot Clavulanate (Augmentin 875-125 mg), 1 TAB PO BID Scheduled PRN Ondasetron Odt (Zofran Odt), 4 MG SL Q6H PRN for Nausea or Vomiting Physical Exam Vital Signs Date Time Temp Pulse Resp B/P (MAP) Pulse Ox O2 Delivery O2 Flow Rate FiO2 02/21/18 10:49 151/87 02/21/18 10:06 88 18 137/84 02/21/18 08:07 37.1 91 18 137/84 98 Room Air Physical Exam CONSTITUTIONAL: Patient is a well-appearing 27-year-old female who is awake and alert and in no acute distress. EYES: Pupils equal, round, reactive to light and accommodation. EOMs intact without nystagmus. Sclera are anicteric. ENT: Tympanic membranes intact, with normal landmarks. External canals are clear. Oral and nasopharynx are clear. Mucous membranes are moist, no lesions , tongue and gums appear normal. CARDIOVASCULAR: Regular rate and rhythm, with normal S1 and S2, no murmur or gallop or rub is heard. No carotid bruits auscultated. No JVD. Peripheral pulses easily palpable. RESPIRATORY: Breath sounds equal and clear to auscultation without wheezes, rales, or rhonchi heard. Full and equal chest expansion without accessory muscle use or retractions. ABDOMEN: Bowel sounds are present. Abdomen is soft, mildly tender in the suprapubic region without guarding, rebound or rigidity. Fundus of the uterus is nonpalpable. No CVA tenderness. INTEGUMENTARY: No lesions or rash, normal skin turgor. LYMPH: No lymphadenopathy. Medical Decision & Procedures ER Provider Diagnostic Interpretation: RENAL ULTRASOUND CLINICAL HISTORY: Dysuria, incontinence. COMPARISON STUDY: FINDINGS: The right kidney measures 11.5 cm. The left kidney measures 10.8 cm. There is no evidence of hydronephrosis. There are no renal masses. The bladder was not well-distended. Neither ureteral jet was visualized. IMPRESSION : 1. The kidneys appear normal bilaterally. There is no hydronephrosis. ULTRASONOGRAPHY (ENDOVAGINAL SCANNING) CLINICAL HISTORY: , urinary tract infection. COMPARISON STUDY: No previous studies for comparison. FINDINGS: A single alive intrauterine gestation was visualized. The crown-rump rump length measured 4.8 cm corresponding to an estimated postmenstrual age of 11 weeks and 4 days. The placenta was anterior. The maternal ovaries were unremarkable in appearance. The heart rate is 163. IMPRESSION: Single live intrauterine gestation. The estimated postmenstrual age is 11 weeks and 4 days. Laboratory Results 02/21/18 08:40 02/21/18 08:40 Test 02/21/18 08:30 02/21/18 08:40 Urine Color YELLOW Urine Appearance CLOUDY (CLEAR) Urine pH 6.5 (4.5-7.5) Urine Specific [place] 1.024 (1.000-1.030) Urine Protein 2+ (NEG) Urine Glucose (UA) NEG (NEG) Urine Ketones NEG (NEG) Urine Occult Blood 2+ (NEG) Urine Nitrite NEG (NEG) Urine Bilirubin NEG (NEG) Urine Urobilinogen NEG (NEG) Urine Leukocyte Esterase MODERATE (NEG) Urine WBC (Auto) >30 /hpf (0-5) Urine RBC (Auto) >30 /hpf (0-4) Urine Hyaline Casts (Auto) 1-5 /lpf (0-5) Urine Epithelial Cells (Auto) 0-5 /lpf (0-5) Urine Bacteria (Auto) 1+ (NEG) Urine Yeast (Auto) (NONE PRSENT) Red Blood Count 4.38 M/uL (4.2-5.4) Mean Corpuscular Volume 89.0 fL (80-100) Mean Corpuscular Hemoglobin 30.8 pg (25-34) Mean Corpuscular Hemoglobin Concent 34.6 g/dl (32-36) RDW Standard Deviation 42.3 fL (36.4-46.3) RDW Coefficient of Variation 13.1 % (11.5-14.5) Mean Platelet Volume 10.4 fL (7.4-10.4) Anion Gap 7.0 mmol/L (3-11) Est Creatinine Clear Calc Drug Dose 178.8 ml/min Estimated GFR () > 150.0 Estimated GFR (Non- 130.0 BUN/Creatinine Ratio 17.1 (10-20) Calcium Level 8.3 mg/dl (8.5-10.1) ED Course Patient seen and evaluated as above. Her old records were reviewed including her urine culture from 01/30 which grew staph saprophyticus. The patient initially could not recall which antibiotic she was treated with, when her mother presented to the emergency department she believes that it was cephalexin. Patient reports that she has been off of antibiotics for about 2 weeks. She went developed urinary symptoms within the last 24 hours. She has been incontinent, which could be related to infection, but she is also concerned about the viability of her . IV lock was initiated and laboratory collected. CBC with differential, BMP and urinalysis and urine culture were ordered. Given her history of kidney stones as well as her urinary symptoms, retroperitoneal ultrasound was obtained in addition to a ultrasound to evaluate the early . Patient's laboratory studies revealed a white count of 12,400. H&H is normal. Electrolytes are well without significant abnormality. No significant renal function abnormalities. Urinalysis is concerning for infection, with 2+ occult blood, moderate leukoesterase, greater than 30 WBCs and RBCs and 1+ bacteria. Culture is pending. Retroperitoneal ultrasound was unremarkable, kidneys appearing normally bilaterally without renal masses and no hydronephrosis. ultrasound confirmed a single, live, intrauterine gestation measuring 11 weeks 4 days consistent with her dates, with confirmed cardiac activity at 163 bpm. Ovaries are unremarkable. The patient was reassessed. She was made aware of the results of all of her laboratory and diagnostic imaging studies. She does appear to have a urinary tract infection. Exam does not appear consistent with pyelonephritis, and kidney stone was entertained, but felt to be less likely. She does not appear to be experiencing any type of obstetric complications including threatened AB or contractions. She will be placed on Augmentin pending urine closely with her primary care provider and [employer] for further care and management. She was educated on the worrisome signs or symptoms for which she should return to the emergency department, including but not limited to worsening pain, fevers, vomiting, inability to urinate. Patient was discharged home with her family in good condition. Medical Decision See ED Course. Medication Reconcilliation Current Medication List: was personally reviewed by me Blood Pressure Screening Patient's blood pressure: Normal blood pressure Blood pressure disposition: Did not require urgent referral Impression Primary Impression: Urinary tract infection Additional Impression: First trimester Departure Information Prescriptions Amoxicillin & Pot Clavulanate (Augmentin 875-125 mg) 1 Tab Tab 1 TAB PO BID, #14 TAB Prov: Angeline Rincon PA 7/28/18 Ondasetron Odt (ZOFRAN ODT) 4 Mg Tab 4 MG SL Q6H Y for Nausea or Vomiting, #25 TAB Prov: Angeline Rincon PA 02/21/18 Referrals Patricia Fontenot C.R.N.P (PCP) Patient Instructions My [facility] Additional Instructions Amoxicillin Clavulanate (Augmentin) 875mg: Take one pill twice daily for 7 days for your urine infection. All antibiotics can cause diarrhea. If this occurs and you feel worse or it does not resolve in 1-2 days follow up with your doctor or return to the Emergency Department as this could be signs of serious underlying problems. Any medication can cause an allergic reaction, stop the pills immediately and return to the ER for rash, hives, breathing difficulties, or swelling. Acetaminophen(Tylenol): may be used for fever or pain. Use 1000mg every eight hours as needed. Avoid using more than 3000mg in a 24 hour period. This is available over the counter. Read all the package inserts or medication information paperwork provided. If you have any questions or concerns call your primary provider, pharmacist or the ER for assistance. Rest and drink plenty of fluids. Continue current medications. Return to the ER immediately for worsening or persistent abdominal pain, vomiting, fevers, back or flank pain, worsening of your condition, or as needed. Follow up with your primary physician within 2-3 days for a recheck of the current condition Call [employer] on Friday to notify them of your ED visit, and schedule a follow up appointment. Problem Qualifiers Primary Impression: Urinary tract infection
[2018-02-21 10:49] VITALS: BP 151/87
--- NOTE | 2018-02-23 20:09 | Pharmacy Progress Note ---
ED Pharmacist Culture FollowUp Date of Service: Feb 23, 2018. Urine cx is growing oxacillin resistant staph saprophyticus >100,000CFU/mL. Pt was sent home w/ dx of UTI and given Rx for Augmentin 875mg PO BID x 7 days. She is ~12 wks . Mechanism of oxacillin resistance is likely altered penicillin binding protein which would make Augmentin ineffective. I did attempt to gain more information from micro to see if additional abx's tested in panel but not reported. Micro stated they were unable to access/report this info. Reviewed case w/ Dr Rubio. Plan was made to d/c Augmentin, place the patient on Macrobid 100mg PO BID x 7 days and have the patient f/u OBGYN to confirm cure after ABX therapy complete. Bactrim is not recommended in 1st trimester. Macrobid may be used in 1st trimester when other agents cannot be used. I attempted to contact the patient w/ ph # provided: [phone], however there was no answer and her voicemail was full.
--- NOTE | 2018-02-24 14:33 | Pharmacy Progress Note ---
ED Pharmacist Culture FollowUp Date of Service: Feb 24, 2018. Attempted to contact patient again today, this time via text requesting the patient call [phone] when she receives the message. Awaiting response. Date of Service: Feb 23, 2018. Urine cx is growing oxacillin resistant staph saprophyticus >100,000CFU/mL. Pt was sent home w/ dx of UTI and given Rx for Augmentin 875mg PO BID x 7 days. She is ~12 wks . Mechanism of oxacillin resistance is likely altered penicillin binding protein which would make Augmentin ineffective. I did attempt to gain more information from micro to see if additional abx's tested in panel but not reported. Micro stated they were unable to access/report this info. Reviewed case w/ Dr Rubio. Plan was made to d/c Augmentin, place the patient on Macrobid 100mg PO BID x 7 days and have the patient f/u OBGYN to confirm cure after ABX therapy complete. Bactrim is not recommended in 1st trimester. Macrobid may be used in 1st trimester when other agents cannot be used. I attempted to contact the patient w/ ph # provided: [phone], however there was no answer and her voicemail was full.
== END 2018-02-21 10:50 | disposition home or self-care (01) ==
LOC: C.EDB 08:05 → C.EDA 10:50
DX: O23.41 Unspecified infection of urinary tract in pregnancy, first trimester (principal); Z3A.11 11 weeks gestation of pregnancy

== ENCOUNTER 2018-08-21 11:18 | Inpatient (IN) ==
[2018-08-21] MEDS ORDERED: OXYTOCIN 30 UNITS/500 ML BAG IV PRN ×2 (11:42→17:17)
[2018-08-21] MEDS ORDERED: LACTATED RINGER'S 1,000 ML IV PRN (11:42)
--- NOTE | 2018-08-21 11:42 | History & Physical Report ---
Date of Service August 21, 2018 Assessment & Plan (1) Normal in multigravida in third trimester: 28 year old at 37 weeks and 6 days with regular contractions every 3 minutes or so who has not made much cervical change since the . Will admit to L and D and check her cervical progress and externally monitor status IV fluids LR at 125/hr CBC Will have her walk the unit and see if contractions subside or if this is truly labor. History of Present Illness Chief Complaint: Labor Check Primary Care Provider: LAUREL Smallwood Ms. Shey Prater is a 28 year old who is presenting to Labor and Delivery at 37 weeks and 6 days for a check of labor. She had been having sporadic random cramps for the last several weeks of her , but today at 9:30 am she noticed she was having intense regular contractions. These have persisted since. She was last seen two days ago 08/[address] Lyman and was found to be 3 cm dilated, 80% effaced and -1 station. On this past friday she started to discharge some pink mucus. She denies any michael bleeding, loss of fluid, and tells me she feels baby moving normally. She has been well recently and denied any recent illness or other ailment. She has been nauseous off and on since last night. Her labs are as follows. Blood Type: AB+ Initial Hemoglobin 12.7 Platelets 283 Last Pap 2016 was negative Rubella Immune GBS - All other infectious testing Negative Thyroid function normal Diabetes Screen Negative Panorama scan negative and shows male fetus Allergies Allergy/AdvReac Type Severity Reaction Status Date / Time morphine AdvReac Severe RACING Unverified 02/21/18 08:55 HEART, CAN'T BREATHE Patient History Social History marital status: Current Living Situation: Spouse and Family Other Information That Helps Us Care for You: No Feels Safe at Home: Yes Safety Concerns: Feels Safe At This Time Smoking Status: Unknown if ever smoked Hx Alcohol Use: No Hx Substance Use: No Beliefs That Will Affect Care: None Preferred Language: Belarusian Communication Ability: Effective Inventory Control Assistant Required: No Review of Systems Constitutional: no fever, no chills, no fatigue and no weakness Respiratory: no cough, no chest congestion, no dyspnea and no wheezing Cardiovascular: + edema; no chest pain, no dyspnea, no palpitations and no syncope Gastrointestinal: no nausea and no vomiting Blood tinged mucus vaginal discharge, no large volume loss of fluids, no bleeding. Physical Exam 2 Vital Signs (Past 24 Hours): Last Vital Signs Pulse 86 08/21/18 11:21 BP 125/77 08/21/18 11:21 Constitutional: well developed, well nourished and + acute distress (SOme distress during contractions) Respiratory: normal respiratory effort, lungs clear to auscultation Cardiovascular: Rate/Rhythm: regular rate and regular rhythm Heart Sounds: normal S1 and normal S2; no click, no gallop, no murmur and no cardiac rub Extremities: + edema (bilateral pitting edema); no calf tenderness Gastrointestinal (Abdomen): Percussion/Palpation: abdomen soft; abdomen nontender With gravid uterus Genitourinary: Manual OB Exam: + cervical dilation 3 cm and 4 cm, + cervical effacement 80% and + station -2 Supervising Physician Co-Signing Physician Notes I have seen/examined patient. I have read above note performed by resident and I agree with above. Any changes/additions are below: 28yo @ 37 6/7 with regular ctx for the past few hours. No leaking fluid /vaginal bleeding. Check in office 2 days ago 3/80/-1. Today, FHT Cat 1. [place] Q 2 min. Cervix 3-4/80/-2. Given patient's prior deliveries were very quick, and her worsening ctx, will admit with labs, IVF, EFM/toco. I discussed with patient that we will monitor her progress - if she makes progress, will keep her and will be ready for delivery. If she does not make change, will reevaluate whether will keep her for further observation vs discharge home. She is agreeable to this plan. Thelma Bender DO [facility]
[2018-08-21] MEDS ORDERED: LACTATED RINGER'S 1,000 ML IV SCH (11:45)
[2018-08-21 12:06] LABS: Hematocrit (blood only) 38.5 % (37-47); Mean Corpuscular Volume 90.8 fL (80-100); Mean Platelet Volume 10.6 fL (7.4-10.4); Platelet Count 171 K/uL (130-400); RDW Standard Deviation 45.4 fL (36.4-46.3); Red Blood Count 4.24 M/uL (4.2-5.4); White Blood Count 9.56 K/uL (4.8-10.8)
[2018-08-21 12:15] LABS: Mean Corpuscular Hgb Conc 33.8 g/dL (32-36)
[2018-08-21] MEDS ORDERED: BUPIVACAINE 0.25% 30 ML VIAL ONE (13:24)
[2018-08-21] MEDS ORDERED: ePHEDrine sulfate 50 MG/ML AMP ONE (13:25)
[2018-08-21] MEDS ORDERED: fentaNYL 2MCG/ML ROPIV 1.25MG/ML 100 ML BAG EPI ONE (13:25)
[2018-08-21] MEDS ORDERED: fentaNYL citrate 100 MCG/2 ML VIAL ONE (13:25)
--- NOTE | 2018-08-21 14:12 | Anesthesiology Consultation ---
Date of Service August 21, 2018 Assessment & Plan (1) Encounter for pre-operative examination: Chart Review Chart Review: Acceptable Risk for Surgery and Patient NOT seen in Pre Admission Testing Consults Requested none History Height/Weight Height: 5 ft 7 in Weight: 83.915 kg Allergies Allergy/AdvReac Type Severity Reaction Status Date / Time morphine AdvReac Severe RACING Unverified 02/21/18 08:55 HEART, CAN'T BREATHE Medications Active Medications Generic Name Dose Route Start Last Admin Trade Name Freq PRN Reason Stop Dose Admin Lactated Ringer's 1,000 mls @ 125 mls/hr 08/21/18 11:45 08/21/18 11:34 Lr IV 08/23/18 11:44 125 mls/hr .Q8H URI Administration Social History Smoking Status: Unknown if ever smoked Hx Alcohol Use: No Hx Substance Use: No Review of Systems Respiratory: no cough and no dyspnea Cardiovascular: no chest pain Physical Exam Vital Signs Last Vital Signs Temp 36.8 C 08/21/18 11:27 Pulse 72 08/21/18 14:10 Resp 22 08/21/18 11:27 BP 124/64 08/21/18 14:10 Pulse Ox 100 08/21/18 14:05 Testing Laboratory Results 08/21/18 11:51
--- NOTE | 2018-08-21 14:31 | Obstetrical Progress Note ---
Date of Service August 21, 2018 Subjective Comfortable after epidural. FHT Cat 1. [place] Q 2 SVE /-2 AROM performed, small amount of clear fluid. Continue to monitor, anticipate . Physical Exam 2 Vital Signs (Past 24 Hours): Last Vital Signs Temp 36.8 C 08/21/18 11:27 Pulse 86 08/21/18 14:25 Resp 22 08/21/18 11:27 BP 117/72 08/21/18 14:17 Pulse Ox 100 08/21/18 14:25
[2018-08-21] MEDS ORDERED: fentaNYL 2MCG/ML ROPIV 1.25MG/ML 100 ML BAG EPI PRN (15:10)
--- NOTE | 2018-08-21 15:36 | Obstetrical Progress Note ---
Date of Service August 21, 2018 Subjective Patient called out feeling dizzy and nauseated. BP 70s/40s, ephedrine given. Pulse dropped to 40s - anesthesia called to bedside. 2nd IV started, patient placed in trendelenberg position. Epidural turned off, patient repositioned. BP and pulse improved. FHT tachycardic, likely related to ephedrine administration. SVE anterior rim/100/0 Anticipate . Physical Exam 2 Vital Signs (Past 24 Hours): Last Vital Signs Temp 36.8 C 08/21/18 11:27 Pulse 88 08/21/18 15:30 Resp 22 08/21/18 11:27 BP 114/62 08/21/18 15:18 Pulse Ox 100 08/21/18 15:30
--- NOTE | 2018-08-21 16:34 | Procedure Note ---
Vaginal Delivery Summary Date of Service August 21, 2018 Vaginal Delivery Summary Predelivery Diagnoses: 28yo @ 37 6/7w, spontaneous labor Postdelivery Diagnoses: same Procedure: Spontaneous vaginal delivery, repair of 1st degree perineal laceration Complications: none Surgeon: Dr Bender EBL: 300ml Findings: Viable male , apgars 8/9. Weight 7#11. 1st degree perineal laceration. Description of delivery: The patient progressed to complete with epidural anesthesia. She then began to push. She spontaneously vaginally delivered a viable male from the cephalic presentation. The head delivered in occiput posterior position, and the baby rotated during delivery of head. Bilateral shoulders delivered at the same time, immediately followed by body. The baby was placed on mother's abdomen, spontaneous cry was heard. Delayed cord clamping was employed, and after approximately 2 minutes and cessation of pulsation of the cord the cord was doubly clamped and cut. Cord blood was obtained. The placenta was spontaneously delivered intact with a three-vessel cord. Pitocin was given and the uterus became firm. The uterus and vagina were swept of all clots and debris. The cervix, vagina, perineum were visualized and a first-degree perineal laceration was noted. The area was infiltrated with 1% lidocaine for better pain control. This was repaired in standard fashion with 3-0 Vicryl. Excellent hemostasis was observed. Sponge, instrument, needle counts were correct x2 at the conclusion of the case. Mother and baby are recovering in stable and good condition in the room.
[2018-08-21] MEDS ORDERED: ACETAMINOPHEN 325 MG TAB PO PRN (17:17)
[2018-08-21] MEDS ORDERED: HYDROCORTISONE ACETATE 25 MG SUPP PR PRN (17:17)
[2018-08-21] MEDS ORDERED: SUPERCREAM 0.870% 15 GM JAR EXT PRN (17:17)
[2018-08-21] MEDS ORDERED: DIPHTHERIA/TETANUS/PERTUSSIS 0.5 ML SYR/VIAL IM ONE (17:17)
[2018-08-21] MEDS ORDERED: BISACODYL 10 MG SUPP PR PRN (17:17)
[2018-08-21] MEDS ORDERED: BENZOCAINE 20% AER SPR 82.5 GM CAN EXT PRN (17:17)
[2018-08-21] MEDS: IBUPROFEN 600 MG TAB PO PRN (17:41)
--- NOTE | 2018-08-21 19:11 | Anesthesia Procedure Note ---
Date of Service August 21, 2018 Anesthesia Post Epidural Note Vital Signs Vital Signs: Temp Pulse Resp BP Pulse Ox 08/21/18 18:48 108 H 133/79 08/21/18 18:32 104 H 109/64 08/21/18 18:17 95 H 125/79 08/21/18 18:02 105 H 139/79 08/21/18 17:48 110 H 118/67 08/21/18 17:32 78 18 132/66 08/21/18 17:17 88 130/69 08/21/18 17:02 71 128/76 08/21/18 16:47 80 132/78 08/21/18 16:32 77 136/78 08/21/18 16:24 82 127/69 08/21/18 16:17 83 119/67 08/21/18 16:05 88 100 08/21/18 16:02 86 129/64 08/21/18 16:00 102 H 100 08/21/18 15:55 138 H 90 08/21/18 15:50 148 H 100 08/21/18 15:45 140 H 100 08/21/18 15:40 78 99 08/21/18 15:35 78 100 08/21/18 15:34 37 L 120/79 08/21/18 15:30 88 100 08/21/18 15:27 36.9 C 20 08/21/18 15:25 77 100 08/21/18 15:20 77 100 08/21/18 15:18 80 114/62 08/21/18 15:15 84 100 08/21/18 15:10 77 99 08/21/18 15:05 77 99 08/21/18 15:03 70 143/81 H 08/21/18 15:00 64 100 08/21/18 14:55 55 L 108/58 L 100 08/21/18 14:53 65 75/46 L 08/21/18 14:50 71 77/42 L 98 08/21/18 14:49 75 91/50 L 08/21/18 14:45 87 100 08/21/18 14:40 93 H 100 08/21/18 14:35 102 H 99 08/21/18 14:32 105 H 104/74 08/21/18 14:30 97 H 94 08/21/18 14:25 86 100 08/21/18 14:20 76 98 08/21/18 14:17 100 H 117/72 08/21/18 14:15 71 99 08/21/18 14:10 87 124/64 100 08/21/18 14:08 76 128/72 08/21/18 14:06 86 128/63 08/21/18 14:05 71 100 08/21/18 14:04 83 138/60 08/21/18 14:02 76 132/79 08/21/18 14:00 84 126/78 98 08/21/18 13:58 87 132/71 08/21/18 13:55 87 100 08/21/18 13:50 90 99 08/21/18 13:45 92 H 100 08/21/18 13:40 85 129/79 100 08/21/18 11:27 36.8 C 86 22 125/77 08/21/18 11:21 86 125/77 Notes Mental Status: alert / awake / arousable Patient Amnestic to Procedure: Yes Nausea / Vomiting: adequately controlled Pain: adequately controlled Airway Patency, RR, SpO2: stable & adequate BP & HR: stable & adequate Hydration State: stable & adequate Neuraxial Anesthesia: sensory block resolved Anesthetic Complications: no major complications apparent and Pt Satisfied with anesthetic care Epidural: Removed without complications
[2018-08-21] MEDS: DOCUSATE SODIUM 100 MG CAP PO SCH (21:26)
[2018-08-22] MEDS: IBUPROFEN 600 MG TAB PO PRN ×2 (04:07→08:16)
--- NOTE | 2018-08-22 06:57 | Obstetrical Progress Note ---
Date of Service <Kalyan Wayne MD - Last Filed: 08/22/18 06:59> August 22, 2018 Assessment & Plan <Kalyan Wayne MD - Last Filed: 08/22/18 06:59> (1) Normal in multigravida in third trimester: 28 year old day 1 post delivering vaginally at 37 weeks and 6 days Vital signs reviewed WNL GBS -, Blood type AB+, Rubella Immune Exam normal Breast Feeding well, encouraged to continue Ambulating to bathroom without difficulty Ready to be discharged to home later today, went over follow up and d/c instructions and patient expressed her understanding. Subjective <Kalyan Wayne MD - Last Filed: 08/22/18 06:59> Ambulation: ambulating normally Voiding: no voiding problems Diet Tolerance:: regular diet Lochia:: Moderate Feeding Type:: breast feeding Ms. Prater is doing very well this morning and reports that she has been up and to the bathroom without issue. She had three episodes of breast feeding and her son had no issues feeding. She endorses some mild pain, mostly in her perianal area where she does have some hemorrhoids. No other issues or questions at this time. She would like to go home later today. Constitutional: no fever and no chills Respiratory: no cough and no dyspnea Cardiovascular: no chest pain, no dyspnea and no palpitations Physical Exam <Kalyan Wayne MD - Last Filed: 08/22/18 06:59> Vital Signs (Past 24 Hours) Last Vital Signs Temp 36.4 C L 08/22/18 03:50 Pulse 80 08/22/18 03:50 Resp 16 08/22/18 03:50 BP 122/77 08/22/18 03:50 Pulse Ox 96 08/22/18 03:50 Constitutional well developed, well nourished, cooperative and comfortable; no acute distress Respiratory normal respiratory effort, lungs clear to auscultation Cardiovascular Rate/Rhythm: regular rate and regular rhythm Heart Sounds: normal S1 and normal S2; no click, no gallop, no murmur and no cardiac rub Extremities: + edema (bilateral pitting edema); no calf tenderness Genitourinary OB Exam Abdomen: + fundal height Fundus: + firm and + relation to umbilicus ( Just below umbilicus); not tender <Thelma Bender, - Last Filed: 08/22/18 07:09> Co-Signing Physician Notes I have seen/examined patient. I have read above note performed by resident and I agree with above. Any changes/additions are as follows: PPD#1 doing well. Requesting discharge today. Instructions reviewed. Followup 6w PP. Thelma Bender DO [facility] [place]
[2018-08-22 06:58] LABS: Hematocrit (blood only) 35.4 % (37-47); Hemoglobin 11.9 g/dL (12.0-16.0); Mean Corpuscular Hgb Conc 33.6 g/dL (32-36); Mean Platelet Volume 11.1 fL (7.4-10.4); Platelet Count 170 K/uL (130-400); RDW Standard Deviation 45.9 fL (36.4-46.3); Red Blood Count 3.89 M/uL (4.2-5.4); White Blood Count 11.92 K/uL (4.8-10.8)
[2018-08-22] MEDS: DOCUSATE SODIUM 100 MG CAP PO SCH (08:17)
[2018-08-22] MEDS ORDERED: PRENATAL VITAMIN 1 TAB PO SCH (09:00)
[2018-08-22 16:50] VITALS: BP 129/84; PULSE 65; TEMP 98.6; O2SAT 97
[2018-08-22] MEDS ORDERED: BISACODYL 5 MG TABEC PO SCH (20:00)
== END 2018-08-22 17:25 | disposition home or self-care (01) | DRG 807 ==
LOC: OPB 11:18 → 4S1 11:20 → 4S2 19:29